=== PATIENT | male | born 1965 ===

== ENCOUNTER 2021-06-23 06:05 | Day surgery (SDC) | payer OTHER ==
[~2021-06-23 06:05] MED LIST: KOMBIGLYZE XR1 EAC2 PO
[2021-06-23] MEDS ORDERED: PERCOCET 5-3251 EACH PO (14:07)
== END 2021-06-23 16:25 | disposition home or self-care (01) ==
LOC: CIR.AMB 06:05
PROVIDERS: ATTEND Surgery
DX: N52.01 Erectile dysfunction due to arterial insufficiency (principal); N48.6 Induration penis plastica; Z20.822 Contact with and (suspected) exposure to COVID-19
CPT/HCPCS: 54405; 54360; C1813